=== PATIENT | male | born 1995 | race Caucasian/White ===

== ENCOUNTER 2021-06-18 13:03 | Emergency (ER) | payer MEDICAID, OTHER ==
[~2021-06-18] VITALS: Ht 193 cm; Wt 77.0 kg
[~2021-06-18 13:03] MED LIST: NASAL SPRAY
[2021-06-18] MEDS ORDERED: HYDROCODONE/ACETAMINOPHEN 5/325MG TABLET PO ONE (14:15)
[2021-06-18] MEDS ORDERED: IBUP-2029 MT (15:05)
[2021-06-18] MEDS ORDERED: T3 PO (15:05)
[2021-06-18] MEDS ORDERED: LORA-249 MT (17:07)
[2021-06-18 17:10] VITALS: BP 116/74
== END 2021-06-18 17:11 | disposition home or self-care (01) ==
LOC: ER 15:52
DX: S09.8XXA Other specified injuries of head, initial encounter (principal); S10.93XA Contusion of unspecified part of neck, initial encounter; S80.211A Abrasion, right knee, initial encounter; Z88.0 Allergy status to penicillin; Y35.813A Legal intervention involving manhandling, suspect injured, initial encounter; Y93.89 Activity, other specified; Y92.89 Other specified places as the place of occurrence of the external cause
CPT/HCPCS: 70450; 70486; 72125; 99284; Z7610

== ENCOUNTER 2021-11-11 19:24 | Emergency (ER) | payer MEDICAID ==
[~2021-11-11] VITALS: Ht 185.4 cm; Wt 80.1 kg
[~2021-11-11 19:24] MED LIST changes: +IBUP-2029 MT; +LORA-249 MT; +T3 PO
[2021-11-11 19:43] VITALS: BP 132/89
== END 2021-11-11 23:00 | disposition left against medical advice (07) ==
LOC: ER 19:24
DX: Z53.21 Procedure and treatment not carried out due to patient leaving prior to being seen by health care provider (principal)

== ENCOUNTER 2022-10-03 13:47 | Emergency (ER) | payer MEDICAID, OTHER ==
[~2022-10-03] VITALS: Ht 185.4 cm; Wt 81.0 kg
[2022-10-03 13:54] VITALS: O2SAT 98
[2022-10-03] MEDS ORDERED: SODIUM CHLORIDE 0.9% 1,000 ML IV ONE (14:45)
[2022-10-03] MEDS ORDERED: KETOROLAC 15MG/ML VIAL IV ONE (14:45)
[2022-10-03] MEDS ORDERED: DEXAMETHASONE 10 MG/ML VIAL IM ONE (14:45)
[2022-10-03 15:16] LABS: BASOPHILS % 0.8 % (0.0-2.0); EOSINOPHILS % 7.7 % (0.0-5.0); HEMATOCRIT. 39.6 % (42.0-52.0); HEMOGLOBIN. 14.2 g/dL (14.0-18.0); LYMPHOCYTES % 34.7 % (20.0-50.0); MEAN CORPUSCULAR HEMOGLOBIN 32.7 pg (28.0-32.0); MEAN CORPUSCULAR VOLUME 91.5 fL (80.0-94.0); MEAN PLATELET VOLUME 9.1 fl (7.4-10.4); MONOCYTES % 8.2 % (2.0-8.0); NEUTROPHILS % 48.6 % (40.0-76.0); PLATELET 325 x1000/uL (130-400); RED BLOOD CELL COUNT 4.33 mill/uL (4.7-6.1); RED CELL DISTRIBUTION WIDTH 14.8 % (11.6-14.6)
[2022-10-03 16:11] LABS: CHLORIDE 114 mEq/L (98-107)
[2022-10-03] MEDS ORDERED: IOHEXOL-300 100 ML BOTTLE ONE (16:34)
[2022-10-03] MEDS ORDERED: NAPR-1074 MT (17:38)
[2022-10-03] MEDS ORDERED: MED4 MT (17:38)
[2022-10-03 17:53] VITALS: BP 132/82; PULSE 80; RESP 16; TEMP 97.7
== END 2022-10-03 17:59 | disposition home or self-care (01) ==
LOC: ER 13:47
DX: I88.9 Nonspecific lymphadenitis, unspecified (principal); M54.2 Cervicalgia; Z00.00 Encounter for general adult medical examination without abnormal findings; Z98.890 Other specified postprocedural states; Z88.0 Allergy status to penicillin
CPT/HCPCS: 80048; 85025; 36415; 70487; 96361; 96372; 96374; 99285; Q9967; J1100; J1885; J7030; Z7610 ×2